=== PATIENT | male | born 1955 | race Caucasian/White ===

== ENCOUNTER 2018-09-22 14:34 | Emergency (ER) | payer BC ==
--- NOTE | 2018-09-22 15:22 | ER Document Report ---
ED Medical Screen (RME) - General Chief Complaint: Dizziness Stated Complaint: DIZZY,BLURRY VISION,HEADACHE Time Seen by Provider: 09/22/18 15:11 Mode of Arrival: Ambulatory Information source: Patient, [facility] Records Notes: 63-year-old male with untreated hypertension presents with concern for " possible stroke". Patient has had a right-sided headache for 1 week. He states that for the last 3 days he has had right-sided blurry vision and dizziness. Patient states that he did take 1 old amlodipine last night I have greeted and performed a rapid initial assessment of this patient. A comprehensive ED assessment and evaluation of the patient, analysis of test results and completion of medical decision making process we will be contacted by additional ED providers. PHYSICAL EXAMINATION: Vital signs reviewed-hypertensive GENERAL: Well-appearing, well-nourished and in no acute distress. LUNGS: No respiratory distress Musculoskeletal: Normal range of motion NEUROLOGICAL: Normal speech, normal gait. Cranial nerves II through XII intact PSYCH: Normal mood, normal affect. SKIN: [place] skin of the face. TRAVEL OUTSIDE OF THE [place] IN LAST 30 DAYS: No - HPI Onset: Other Onset/Duration: Persistent Quality of pain: Throbbing Severity: Moderate Associated Symptoms: Dizzy/lightheaded, Headache Exacerbated by: Walking Relieved by: Remaining still Similar symptoms previously: No Recently seen / treated by doctor: No - Related Data Smoking: Cigarettes Frequency of alcohol use: Heavy Drug Abuse: None Allergies/Adverse Reactions: Penicillins Allergy (Verified 03/07/16 11:03) Physical Exam - Vital signs Vitals: Temp Pulse Resp BP Pulse Ox 97.9 F 84 16 149/104 H 98 09/22/18 14:39 09/22/18 14:39 09/22/18 14:39 09/22/18 14:39 09/22/18 14:39 Course - Vital Signs Vital signs: Temp Pulse Resp BP Pulse Ox 97.9 F 84 16 149/104 H 98 09/22/18 14:39 09/22/18 14:39 09/22/18 14:39 09/22/18 14:39 09/22/18 14:39
--- NOTE | 2018-09-22 16:50 | RADIOLOGY REPORT (SQ) ---
EXAM DESCRIPTION: CHEST SINGLE VIEW COMPLETED DATE/TIME: 09/22/2018 4:36 pm REASON FOR STUDY: Blurred vision, dizziness COMPARISON: None. EXAM PARAMETERS: NUMBER OF VIEWS: One view. TECHNIQUE: Single frontal radiographic view of the chest acquired. RADIATION DOSE: NA LIMITATIONS: None. FINDINGS: LUNGS AND PLEURA: No opacities, masses or pneumothorax. No pleural effusion. MEDIASTINUM AND HILAR STRUCTURES: No masses. Contour normal. HEART AND VASCULAR STRUCTURES: Heart normal in size. Normal vasculature. BONES: No acute findings. HARDWARE: None in the chest. OTHER: No other significant finding. IMPRESSION: NO ACUTE RADIOGRAPHIC FINDING IN THE CHEST. TECHNICAL DOCUMENTATION: JOB ID: [id number] [employer]- All Rights Reserved Reading location - IP/workstation name: [email or web address]
--- NOTE | 2018-09-22 16:50 | RADIOLOGY REPORT (SQ) ---
EXAM DESCRIPTION: CT HEAD WITHOUT COMPLETED DATE/TIME: 09/22/2018 4:41 pm REASON FOR STUDY: Blurred vision, dizziness COMPARISON: None. TECHNIQUE: Axial images acquired through the brain without intravenous contrast. Images reviewed wi th bone, brain and subdural windows. Additional sagittal and coronal reconstructions were generated. Images stored on PACS. All CT scanners at this facility use dose modulation, iterative reconstruction, and/or weight based d osing when appropriate to reduce radiation dose to as low as reasonably achievable (ALARA). [facility]: Dose Right [facility]: CareDose [facility]: Dose Right [facility]: Teradose 4D [facility]: [employer] RADIATION DOSE: CT Rad equipment meets quality standard of care and radiation dose reduction techniq ues were employed. CTDIvol: 53.2 mGy. DLP: 1044 mGy-cm. mGy. LIMITATIONS: None. FINDINGS: VENTRICLES: Normal size and contour. CEREBRUM: No masses. No hemorrhage. No midline shift. No evidence for acute infarction. Normal gra y/white matter differentiation. No areas of low density in the white matter. CEREBELLUM: No masses. No hemorrhage. No alteration of density. No evidence for acute infarction. EXTRAAXIAL SPACES: No fluid collections. No masses. ORBITS AND GLOBE: No intra- or extraconal masses. Normal contour of globe without masses. CALVARIUM: No fracture. PARANASAL SINUSES: No fluid or mucosal thickening. SOFT TISSUES: No mass or hematoma. OTHER: No other significant finding. IMPRESSION: NORMAL BRAIN CT WITHOUT CONTRAST. EVIDENCE OF ACUTE STROKE: NO. COMMENT: Quality ID # [id number]: Final reports with documentation of one or more dose reduction techniques (e.g., Automated exposure control, adjustment of the mA and/or kV according to patient size, use of iterative reconstruction technique) TECHNICAL DOCUMENTATION: JOB ID: [id number] [employer]- All Rights Reserved Reading location - IP/workstation name: [email or web address]
[2018-09-22 17:56] LABS: ABSOLUTE BASOPHILS # (AUTO) 0.1 10^3/uL (0.0-0.2); ABSOLUTE EOSINOPHILS # (AUTO) 0.2 10^3/uL (0.0-0.6); ABSOLUTE LYMPHOCYTES (AUTO) 2.5 10^3/uL (0.5-4.7); ABSOLUTE MONOCYTES (AUTO) 1.4 10^3/uL (0.1-1.4); ABSOLUTE NEUT (AUTO) 7.7 10^3/uL (1.7-8.2); BASOPHILS % (AUTO) 0.5 % (0-2); EOSINOPHILS % (AUTO) 1.6 % (0-6); HEMATOCRIT 34.7 % (37.9-51.0); HEMOGLOBIN 12.2 g/dL (13.5-17.0); INTERNATIONAL RATION (INR) 0.87; MEAN CORPUSCULAR HEMOGLOBIN 33.2 pg (27.0-33.4); MEAN CORPUSCULAR HGB CONC 35.3 g/dL (32.0-36.0); MEAN CORPUSCULAR VOLUME 94 fl (80-97); MONOCYTES % (AUTO) 11.6 % (3-13); PROTHROMBIN TIME 12.3 SEC (11.4-15.4); RED BLOOD COUNT 3.69 10^6/uL (4.35-5.55); RED CELL DISTRIBUTION WIDTH 14.4 % (11.5-14.0); SEGMENTED NEUTROPHILS % (AUTO) 65.3 % (42-78); TOTAL CELLS COUNTED % (AUTO) 100 %; WHITE BLOOD COUNT 11.8 10^3/uL (4.0-10.5)
[2018-09-22 17:57] LABS: PARTIAL THROMBOPLASTIN TIME 28.6 SEC (23.5-35.8)
[2018-09-22 18:09] LABS: ALANINE AMINOTRANSFERASE 28 U/L (21-72); ALBUMIN 3.9 g/dL (3.5-5.0); ALKALINE PHOSPHATASE 94 U/L (38-126); ANION GAP 10 (5-19); ASPARTATE AMINO TRANSFERASE 36 U/L (17-59); BILIRUBIN,DIRECT 0.3 mg/dL (0.0-0.4); BILIRUBIN,TOTAL 0.7 mg/dL (0.2-1.3); BLOOD UREA NITROGEN 54 mg/dL (7-20); CALCIUM 9.1 mg/dL (8.4-10.2); CARBON DIOXIDE 27 mmol/L (22-30); CHLORIDE 92 mmol/L (98-107); CREATINE KINASE 47 U/L (55-170); GLUCOSE 97 mg/dL (75-110); POTASSIUM 3.5 mmol/L (3.6-5.0); SODIUM 129.2 mmol/L (137-145); TOTAL PROTEIN 7.7 g/dL (6.3-8.2)
[2018-09-22 18:10] LABS: ALCOHOL < 10 mg/dL (NONE DETECTED); PLATELET COUNT 61 10^3/uL (150-450)
[2018-09-22 18:20] LABS: CREATINE KINASE MB 1.04 ng/mL (<4.55)
[2018-09-22 18:23] LABS: TROPONIN I 0.06 ng/mL
[2018-09-22] MEDS ORDERED: AMLODIPINE BESYLATE 5 MG TABLET PO ONE (20:35)
--- NOTE | 2018-09-22 20:42 | ER Document Report ---
ED General - General Chief Complaint: Dizziness Stated Complaint: DIZZY,BLURRY VISION,HEADACHE Time Seen by Provider: 09/22/18 15:11 Mode of Arrival: Ambulatory TRAVEL OUTSIDE OF THE [place] IN LAST 30 DAYS: No - HPI Patient complains to provider of: Dizziness blurry vision headache Notes: Patient coming in for evaluation of dizziness blurry vision and headache. Patient states symptoms ongoing for greater than a week. Patient states has a history of elevated blood pressure however not been taking his medications. Patient also states he does drink alcohol heavily however now he drinks once a week. Patient denies any smoking. Patient denies any fevers or chills denies any trauma. Patient states visual disturbance mostly in the right eye patient states whenever he is looking at both eyes he can see a TV fine however when he closes his left the color looks to be ramos. Patient denies wearing any corrective lenses or contacts. Patient denies pain in his eyes denies any unilateral weakness. Patient does states he does have a headache occipital and frontal. Otherwise resting comfortably and waiting around the room without any difficulty. Patient does state noncompliance with any of his blood pressure medication and patient does have Amlodipine and Benzapril combination at bedside. Patient states he did take a blood pressure medication yesterday however nothing today states he has not taken his blood pressure medication before that time for greater than a month. Patient states dizziness is more exacerbated when changing position. - Related Data Allergies/Adverse Reactions: Penicillins Allergy (Verified 03/07/16 11:03) Past Medical History - General Information source: Patient, [facility] Records - Social History Smoking Status: Former Smoker Chew tobacco use (# tins/day): No Frequency of alcohol use: Heavy Drug Abuse: None Family History: Reviewed & Not Pertinent Patient has suicidal ideation: No Patient has homicidal ideation: No - Past Medical History Cardiac Medical History: Reports: Hx Hypertension Renal/ Medical History: Denies: Hx Peritoneal Dialysis Past Surgical History: Reports: Hx Orthopedic Surgery - R ankle sx d/t fx Review of Systems - Review of Systems Constitutional: No symptoms reported EENT: No symptoms reported Cardiovascular: No symptoms reported Respiratory: No symptoms reported Gastrointestinal: No symptoms reported Genitourinary: No symptoms reported Male Genitourinary: No symptoms reported Musculoskeletal: No symptoms reported Skin: No symptoms reported Hematologic/Lymphatic: No symptoms reported Neurological/Psychological: Headaches, Other - Vision disturbance Physical Exam - Vital signs Vitals: Temp Pulse Resp BP Pulse Ox 97.9 F 84 16 149/104 H 98 09/22/18 14:39 09/22/18 14:39 09/22/18 14:39 09/22/18 14:39 09/22/18 14:39 Interpretation: Normal - General General appearance: Appears well, Alert - HEENT Head: Normocephalic, Atraumatic Eyes: Normal Conjunctiva: Normal Cornea: Normal Extraocular movements intact: Yes Eyelashes: Normal Pupils: PERRL Visual le normal: Yes Neck: Normal - Respiratory Respiratory status: No respiratory distress Chest status: Nontender Breath sounds: Normal Chest palpation: Normal - Cardiovascular Rhythm: Regular Heart sounds: Normal auscultation Murmur: No - Abdominal Inspection: Normal Distension: No distension Bowel sounds: Normal Tenderness: Nontender Organomegaly: No organomegaly - Back Back: Normal, Nontender - Extremities General upper extremity: Normal inspection, Nontender, Normal color, Normal ROM , Normal temperature General lower extremity: Normal inspection, Nontender, Normal color, Normal ROM , Normal temperature, Normal weight bearing. No: Pablo's sign - Neurological Neuro grossly intact: Yes Cognition: Normal Orientation: AAOx4 Jacque Coma Scale Eye Opening: Spontaneous [place] Coma Scale Verbal: Oriented [place] Coma Scale Motor: Obeys Commands [place] Coma Scale Total: 15 Speech: Normal Motor strength normal: LUE, RUE, LLE, RLE Sensory: Normal - Psychological Associated symptoms: Normal affect, Normal mood - Skin Skin Temperature: Warm Skin Moisture: Dry Skin Color: Normal Course - Re-evaluation Re-evalutation: 09/22/18 23:24 Laboratory studies that showed acute renal failure. Last time patient was here in 2016 patient's creatinine was 1.3. Patient upon relayed this information to stay was having some difficulty urinating but he looked online attributes this to having prostate issues. Patient was able to give a urine sample here did show some mild blood. Patient CT scan was negative patient's troponins otherwise negative to the To the patient I would recommend admitting the patient to the hospital for further evaluation of his symptoms. Do not believe at this time the patient had an acute stroke ocular examination was otherwise normal. By the expected patient will control blood pressure now showing signs of acute renal failure does increase his risk currently of having a stroke in the future also having cardiac disease. Patient stated that he would rather go home follow-up with his primary care physician that he has not seen in a year. Patient did ask for medication to help control his blood pressure at this time we will start the patient on amlodipine as he states the accommodation tablet makes him "feel unwell". Patient stated understanding of the risk of leaving at this time and disadvantages of not being admitted to the hospital at this time to however patient very insistent on leaving and going home tonight. - Vital Signs Vital signs: Temp Pulse Resp BP Pulse Ox 98.6 F 74 14 144/103 H 98 09/22/18 20:53 09/22/18 19:00 09/22/18 20:46 09/22/18 20:46 09/22/18 20:46 - Laboratory Result Diagrams: 09/22/18 17:30 09/22/18 17:30 Laboratory results interpreted by me: 09/22/18 09/22/18 09/22/18 17:30 17:30 19:42 WBC 11.8 H RBC 3.69 L Hgb 12.2 L Hct 34.7 L RDW 14.4 H Plt Count 61 L Sodium 129.2 L Potassium 3.5 L Chloride 92 L BUN 54 H Creatinine 3.06 H Est GFR ( Amer) 25 L Est GFR (Non-Af Amer) 21 L Creatine Kinase 47 L Urine Protein 100 H Urine Blood MODERATE H Discharge - Discharge Clinical Impression: Visual disturbance Acute renal failure Qualifiers: Acute renal failure type: unspecified Qualified Code(s): N17.9 - Acute kidney failure, unspecified Hypertension Qualifiers: Hypertension type: unspecified Qualified Code(s): I10 - Essential (primary) hypertension Condition: Good Disposition: HOME, SELF-CARE Instructions: Dizziness ([facility]), High Blood Pressure, Requiring Treatment ([facility]), Kidney Failure ([facility]) Additional Instructions: Your laboratory studies today show signs of acute renal failure more likely is combination of urinary issues along with your uncontrolled blood pressure. We will start you on blood pressure medication called amlodipine I would recommend taking this as prescribed. I would highly recommend you follow-up with your primary care physician for further evaluation of your renal function. At this time her CT of your head did not show any signs of acute changes some your visual disturbance may be related to your uncontrolled blood pressure. You have been offered admission (which I would recommend) to the hospital for further evaluation of use however at this time however you have declined. I recommend taking blood pressure medication as prescribed make sure you drink plenty of fluids stay well-hydrated call your doctor on Sunday to schedule follow-up appointment. I would also recommend taking a baby aspirin a day 81 mg Please return to ER anytime for further evaluation if your symptoms change. Prescriptions: Amlodipine Besylate [Norvasc 5 mg Tablet] 5 mg PO DAILY #30 tablet Referrals: KIMBERLEY DRUMMOND PA-C [Primary Care Provider] - Follow up as needed
[2018-09-22 20:49] VITALS: BP 144/103
[2018-09-22 20:53] LABS: APPEARANCE,URINE SLIGHTLY-CLOUDY; BILIRUBIN,URINE NEGATIVE (NEGATIVE); COLOR,URINE YELLOW; GLUCOSE, URINE NEGATIVE (NEGATIVE); KETONES,URINE NEGATIVE (NEGATIVE); LEUKOCYTE ESTERASE,URINE NEGATIVE (NEGATIVE); NITRITE,URINE NEGATIVE (NEGATIVE); PROTEIN,URINE 100 mg/dL (NEGATIVE); URINE SPECIFIC GRAVITY 1.012; UROBILINOGEN,URINE NEGATIVE mg/dL (<2.0)
[2018-09-22 21:09] LABS: URINE AMPHETAMINES SCREEN NEGATIVE; URINE BARBITURATES SCREEN NEGATIVE; URINE BENZODIAZEPINES SCREEN NEGATIVE; URINE COCAINE SCREEN NEGATIVE; URINE MARIJUANA (THC) SCREEN NEGATIVE; URINE METHADONE SCREEN NEGATIVE; URINE PHENCYCLIDINE SCREEN NEGATIVE
--- NOTE | 2018-09-23 00:51 | EKG REPORT ---
SEVERITY:- ABNORMAL ECG - SINUS RHYTHM INCOMPLETE RIGHT BUNDLE BRANCH BLOCK ABNRM R PROG, CONSIDER ASMI OR LEAD PLACEMENT PROLONGED QT INTERVAL : Confirmed by: Gail Avina MD 23-Sep-2018 00:50:26
== END 2018-09-22 20:53 | disposition home or self-care (01) ==
LOC: ER 14:34
DX: N17.9 Acute kidney failure, unspecified (principal); H53.8 Other visual disturbances; R42 Dizziness and giddiness; R51 Headache; I10 Essential (primary) hypertension; Z88.0 Allergy status to penicillin
CPT/HCPCS: 36415; 70450; 71045; 80053; 80307; 81001; 82550; 82553; 82962; 84484; 85025; 85610; 85730; 93005; 93010; 99285

== ENCOUNTER → 2019-04-09 | Outpatient (CLI) | payer BC ==
--- NOTE | 2019-04-10 08:06 | XCELERA REPORT ---
[address] [address] Lower Extremity Venous Evaluation Procedure: Color flow and duplex imaging of the veins of the left lower extremity as well as the right Common Femoral vein. Right Sided Venous Evaluation The right common femoral vein is fully compressible. Spontaneous and phasic flow is present in the right common femoral vein. Left Sided Venous Evaluation A large, oval, echolucent area is seen in the Popliteal fossa. Normal vessel filling wall to wall, compression and augmentation as well as Colour flow down to the infrageniculate veins. Interpretation Summary No duplex evidence of DVT or obstruction in the left lower extremity nor in the right Common Femoral vein. A large left Popliteal cyst is noted. Name: ARLYN ZAMUDIO Age: 63 yrs Gender: Male : 1955 Patient Status: Outpatient Patient Location: Study Date: 04/09/2019 05:19 PM Reason For Study: LLE I82.402 Ordering Physician: KELLY GUARDADO Performed By: Emmanuelle Longo : KELLY GUARDADO > Juanjose Martinez
== END ==
LOC: SP 16:45
PROVIDERS: ATTEND Internal Medicine Nephrology
DX: I82.402 Acute embolism and thrombosis of unspecified deep veins of left lower extremity (principal)
CPT/HCPCS: 93971

== ENCOUNTER → 2019-05-02 | Outpatient (CLI) | payer BC ==
[2019-05-02 08:41] LABS: ABSOLUTE BASOPHILS # (AUTO) 0.1 10^3/uL (0.0-0.2); ABSOLUTE EOSINOPHILS # (AUTO) 0.3 10^3/uL (0.0-0.6); ABSOLUTE LYMPHOCYTES (AUTO) 1.4 10^3/uL (0.5-4.7); ABSOLUTE NEUT (AUTO) 3.7 10^3/uL (1.7-8.2); BASOPHILS % (AUTO) 1.1 % (0-2); EOSINOPHILS % (AUTO) 4.6 % (0-6); HEMATOCRIT 36.9 % (37.9-51.0); HEMOGLOBIN 12.7 g/dL (13.5-17.0); LYMPHOCYTES % (AUTO) 21.1 % (13-45); MEAN CORPUSCULAR HEMOGLOBIN 31.5 pg (27.0-33.4); MEAN CORPUSCULAR HGB CONC 34.3 g/dL (32.0-36.0); MEAN CORPUSCULAR VOLUME 92 fl (80-97); MONOCYTES % (AUTO) 15.5 % (3-13); PLATELET COUNT 259 10^3/uL (150-450); RED BLOOD COUNT 4.02 10^6/uL (4.35-5.55); RED CELL DISTRIBUTION WIDTH 13.6 % (11.5-14.0); SEGMENTED NEUTROPHILS % (AUTO) 57.7 % (42-78); TOTAL CELLS COUNTED % (AUTO) 100 %; WHITE BLOOD COUNT 6.5 10^3/uL (4.0-10.5)
[2019-05-02 08:59] LABS: ALBUMIN 3.9 g/dL (3.5-5.0); ANION GAP 11 (5-19); BLOOD UREA NITROGEN 52 mg/dL (7-20); CALCIUM 9.2 mg/dL (8.4-10.2); CARBON DIOXIDE 20 mmol/L (22-30); CHLORIDE 107 mmol/L (98-107); GLUCOSE 100 mg/dL (75-110); PHOSPHORUS 4.9 mg/dL (2.5-4.5); POTASSIUM 4.4 mmol/L (3.6-5.0)
[2019-05-02 09:00] LABS: APPEARANCE,URINE CLEAR; BILIRUBIN,URINE NEGATIVE (NEGATIVE); COLOR,URINE STRAW; GLUCOSE, URINE NEGATIVE (NEGATIVE); KETONES,URINE NEGATIVE (NEGATIVE); LEUKOCYTE ESTERASE,URINE NEGATIVE (NEGATIVE); NITRITE,URINE NEGATIVE (NEGATIVE); PROTEIN,URINE 30 mg/dL (NEGATIVE); URINE SPECIFIC GRAVITY 1.006; UROBILINOGEN,URINE NEGATIVE mg/dL (<2.0)
[2019-05-03 11:37] LABS: CREATININE URINE 37.7 mg/dL (Not Estab.); MICROALBUMIN URINE 126.8 ug/mL (Not Estab.)
== END ==
LOC: OD 08:16
PROVIDERS: ATTEND Internal Medicine Nephrology
DX: I12.9 Hypertensive chronic kidney disease with stage 1 through stage 4 chronic kidney disease, or unspecified chronic kidney disease (principal); N18.4 Chronic kidney disease, stage 4 (severe)
CPT/HCPCS: 36415; 80069; 81001; 82043; 82306; 82570; 83970; 85025

== ENCOUNTER → 2019-12-17 | Outpatient (CLI) | payer BC ==
[2019-12-17 09:09] LABS: ABSOLUTE BASOPHILS # (AUTO) 0.1 10^3/uL (0.0-0.2); ABSOLUTE EOSINOPHILS # (AUTO) 0.3 10^3/uL (0.0-0.6); ABSOLUTE LYMPHOCYTES (AUTO) 1.7 10^3/uL (0.5-4.7); ABSOLUTE MONOCYTES (AUTO) 1.2 10^3/uL (0.1-1.4); BASOPHILS % (AUTO) 1.1 % (0-2); EOSINOPHILS % (AUTO) 3.7 % (0-6); HEMATOCRIT 38.5 % (37.9-51.0); HEMOGLOBIN 13.1 g/dL (13.5-17.0); MEAN CORPUSCULAR HEMOGLOBIN 31.2 pg (27.0-33.4); MEAN CORPUSCULAR VOLUME 92 fl (80-97); MONOCYTES % (AUTO) 16.7 % (3-13); PLATELET COUNT 249 10^3/uL (150-450); RED BLOOD COUNT 4.21 10^6/uL (4.35-5.55); RED CELL DISTRIBUTION WIDTH 14.4 % (11.5-14.0); SEGMENTED NEUTROPHILS % (AUTO) 55.5 % (42-78); TOTAL CELLS COUNTED % (AUTO) 100 %; WHITE BLOOD COUNT 7.2 10^3/uL (4.0-10.5)
[2019-12-17 09:39] LABS: ANION GAP 14 (5-19); BLOOD UREA NITROGEN 55 mg/dL (7-20); CALCIUM 9.3 mg/dL (8.4-10.2); CARBON DIOXIDE 20 mmol/L (22-30); CHLORIDE 104 mmol/L (98-107); GLUCOSE 86 mg/dL (75-110); IRON(TIBC) 88.1 ug/dL (49-181); PHOSPHORUS 5.1 mg/dL (2.5-4.5); POTASSIUM 4.6 mmol/L (3.6-5.0)
[2019-12-17 10:44] LABS: FOLATE 7.82 ng/mL (>2.76)
[2019-12-18 12:36] LABS: CREATININE URINE 48.3 mg/dL (Not Estab.); MICROALBUMIN URINE 75.9 ug/mL (Not Estab.)
== END ==
LOC: OD 08:13
PROVIDERS: ATTEND Internal Medicine Nephrology
DX: I12.9 Hypertensive chronic kidney disease with stage 1 through stage 4 chronic kidney disease, or unspecified chronic kidney disease (principal); N18.4 Chronic kidney disease, stage 4 (severe); D63.1 Anemia in chronic kidney disease; E83.39 Other disorders of phosphorus metabolism
CPT/HCPCS: 36415; 80048; 82043; 82570; 82607; 82728; 82746; 83540; 83550; 84100; 85025